=== PATIENT | female | born 1990 | race Caucasian/White ===

== ENCOUNTER 2016-11-22 11:40 | Inpatient (IN) | payer SELFPAY ==
[~2016-11-22] VITALS: Ht 160 cm; Wt 80.4 kg
[2016-11-22 11:58] VITALS: BP 185/90
[2016-11-22] MEDS ORDERED: PROAIR RESPICL90 MCG INH (11:58)
[2016-11-22 13:09] LABS: BASO # 0.1 10*3/uL (0.0-0.1); BASO % 0.6 % (0.0-1.0); EOS # 0.2 10*3/uL (0.0-0.4); EOS % 1.7 % (1.0-4.0); HEMOGLOBIN 15.3 g/dl (12.0-16.0); LYMPH # 1.2 10*3/uL (1.3-4.4); LYMPH % 9.9 % (27.0-41.0); MEAN CELL VOLUME 93.6 fl (81.0-99.0); MEAN CORPUSCULAR HGB 31.8 pg (27.0-31.0); MEAN PLATELET VOLUME 9.8 fl (9.6-12.3); MONO # 0.6 10*3/uL (0.1-1.0); MONO % 5.4 % (3.0-9.0); NEUT # 9.7 10*3/uL (2.3-7.9); NEUT % 82.2 % (47.0-73.0); PLATELET COUNT AUTOMATED 268 10*3/uL (130-400); RED BLOOD COUNT 4.81 10*6/uL (4.10-5.10); RED CELL DISTRI WIDTH 12.4 % (0-14.5); WHITE BLOOD COUNT 11.8 10*3/uL (4.8-10.8)
[2016-11-22 13:12] LABS: BILIRUBIN NEGATIVE (NEGATIVE); BLOOD NEGATIVE (NEGATIVE); CLARITY SL CLOUDY (CLEAR); COLOR YELLOW (YELLOW); GLUCOSE NEGATIVE (NEGATIVE); KETONE NEGATIVE (NEGATIVE); LEUKO ESTERASE NEGATIVE (NEGATIVE); NITRITE NEGATIVE (NEGATIVE); PROTEIN NEGATIVE (NEGATIVE); UROBILINOGEN 0.2 E.U./dl (0.2-1.0)
[2016-11-22 13:18] LABS: PROTHROMBIN TIME 11.1 SECONDS (9.0-12.4)
[2016-11-22 13:21] LABS: BACTERIA TRACE
[2016-11-22 13:22] LABS: URINE REFLEX COMMENT NO (NO)
[2016-11-22 13:26] VITALS: BP 170/80
[2016-11-22 13:28] LABS: ALBUMIN 4.3 gm/dl (3.1-4.5); ALKALINE PHOSPHATASE 99 U/L (45-117); BILIRUBIN, TOTAL 0.3 mg/dl (0.2-1.0); BUN 7 mg/dl (7-24); C-REACTIVE PROTEIN < 0.29 MG/DL (0-0.3); CARBON DIOXIDE 27 mmol/L (21-32); CHLORIDE 106 mmol/L (98-107); EST GLOM FILT AFRICAN AMERICAN > 60 ml/min; GLUCOSE 91 mg/dL (65-99); MAGNESIUM 2.1 mg/dL (1.5-2.1); POTASSIUM 4.1 mmol/L (3.5-5.1); SGOT/AST 22 IU/L (3-35); SGPT/ALT 28 U/L (12-78); SODIUM 140 mmol/L (136-145); TOTAL PROTEIN 8.1 gm/dL (6.4-8.2)
[2016-11-22 13:45] VITALS: BP 141/88
[2016-11-22 14:00] VITALS: BP 141/88
[2016-11-22 14:26] LABS: URINE AMPHETAMINES < 1000 (1000ng/ml); URINE BARBITURATES < 200 (200ng/ml); URINE COCAINE < 300 (300ng/ml)
[2016-11-22 16:00] VITALS: BP 130/78
== END 2016-11-22 18:41 | disposition left against medical advice (07) | DRG 894 ==
LOC: ED 11:40 → EDHOLD 12:46 → 5E 13:06
PROVIDERS: Emergency Medicine; Internal Medicine Hospice and Palliative Medicine
DX: F10.230 Alcohol dependence with withdrawal, uncomplicated (principal); Z68.1 Body mass index [BMI] 19.9 or less, adult; F17.200 Nicotine dependence, unspecified, uncomplicated; F41.1 Generalized anxiety disorder; K21.9 Gastro-esophageal reflux disease without esophagitis; Z53.21 Procedure and treatment not carried out due to patient leaving prior to being seen by health care provider; E66.9 Obesity, unspecified; Z82.49 Family history of ischemic heart disease and other diseases of the circulatory system; Z79.51 Long term (current) use of inhaled steroids; Z71.6 Tobacco abuse counseling; Z88.6 Allergy status to analgesic agent; Z84.89 Family history of other specified conditions